=== PATIENT | female | born 1975 | race Hispanic/Latino ===

== ENCOUNTER → 2017-04-07 | Outpatient (CLI) | payer OTHER | LOC: MAMMO 15:45 | PROVIDERS: ATTEND Internal Medicine | DX: Z12.31 Encounter for screening mammogram for malignant neoplasm of breast (principal) ==

== ENCOUNTER → 2017-09-10 | Outpatient (CLI) | payer OTHER ==
--- NOTE | 2017-09-10 17:31 | Diagnostic Imaging Report ---
PROCEDURE:X-RAY LUMBAR SPINE, TWO VIEWS COMPARISON:None. INDICATIONS:PAIN IN LOWER BACK AND LEGS FINDINGS: There are 5 lumbar-type vertebral bodies. There is mild scoliosis of the upper lumbar spine convex to the right without rotational component. Transverse processes are intact. Pedicles are normally aligned and normal in morphology. There is anterolisthesis of L4 on L5 of about 3 mm. The vertebral body heights are symmetric. There is moderate disc space narrowing and endplate osteophyte lipping at L5-S1 minimal disc space narrowing at L4-5. There are no fractures, lytic or blastic lesions. Pars defects cannot be assessed in the absence of oblique images. The sacroiliac joints are unremarkable. Bowel gas pattern is unremarkable. Cholecystectomy clips are present. CONCLUSION: 1. Trace anterolisthesis of L4 on L5. 2. Moderate disc space narrowing of L5-S1 and to a lesser extent L4-5. Dictated by: Benoit Lee M.D. on 09/10/2017 at 17:36 Electronically approved by: Benoit Lee M.D. on 09/10/2017 at 17:36
--- NOTE | 2017-09-10 17:34 | Diagnostic Imaging Report ---
PROCEDURE:SACRUM X-RAY TECHNIQUE:AP and lateral images of the sacrum obtained. INDICATION:Pain in lower back and down the legs COMPARISON:Lumbar spine series obtained at the same time FINDINGS: The sacrum is intact. Sacroiliac joints are patent with mild sclerosis surrounding the right SI joint. Visualized portion of the lower lumbar spine demonstrates moderate disc space narrowing and endplate sclerosis of L5-S1. Visualized portions of the hips and pubic symphysis are normal. CONCLUSION: Degenerative changes of L5-S1. Mild sclerosis of the right SI joint. Both SI joints are patent. No evidence of fracture. Dictated by: Benoit Lee M.D. on 09/10/2017 at 17:39 Electronically approved by: Benoit Lee M.D. on 09/10/2017 at 17:39
== END ==
LOC: RAD 16:42
PROVIDERS: ATTEND Internal Medicine
DX: S33.5XXA Sprain of ligaments of lumbar spine, initial encounter (principal)
CPT/HCPCS: 72100; 72220

== ENCOUNTER → 2017-11-26 | Outpatient (CLI) | payer OTHER ==
--- NOTE | 2017-11-27 06:33 | Diagnostic Imaging Report ---
History: Low back pain. [facility] Comparison studies: None Technique: Sagittal, coronal and axial T2 , sagittal T1 and IR, axial spin density oblique. Intravenous contrast: None Findings: Number of lumbar vertebral bodies:5 Alignment: Normal lordosis.No scoliosis. Soft tissues: No T2 hyperintense inflammatory changes. Paraspinal muscles: No signal abnormalities. No atrophy. Lower thoracic cord:Normal in signal and morphology. The tip of the conus is at T12. Cauda equina: No masses. No arachnoiditis. Vertebrae: Normal in height and signal intensity. No compression fractures, infection or neoplasm. Degenerative changes: L1-L2: No abnormalities. L2-L3: No abnormalities. L3-L4: Disc degeneration with loss of T2 signal. Diffuse disc bulge and small central disc protrusion results in no significant canal stenosis or foraminal narrowing. L4-L5: Disc degeneration with loss of T2 signal. Asymmetric left disc bulge with superimposed left extraforaminal annular fissure, moderate bilateral facet hypertrophy, ligamentum flavum thickening and left 9 mm anteriorly projecting synovial cysts results in obliteration of the left subarticular recess with impingement of the descending L5 nerve root. Mild canal stenosis and mild left foraminal narrowing. Fluid at the bilateral facet joints and bilateral inferiorly projecting synovial cysts measuring up to 8 mm on the right. L5-S1: Disc degeneration with loss of T2 signal and decreased intervertebral space. Mild diffuse disc bulge and mild bilateral facet hypertrophy results in no significant canal stenosis or foraminal narrowing. Trace of fluid at the left facet joint. Additional findings: Perineural cysts measuring up to 1 cm at the right S2 nerve root partially visualized sagittal images. IMPRESSION: Obliteration of the left subarticular recess at L4-L5 secondary to asymmetric left disc bulge and anteriorly projecting synovial cyst impinging the descending left L5 nerve root. Moderate facet hypertrophy with synovitis changes at L4-L5. Disc degeneration more significant at L5-S1 without endplate edema. Other degenerative changes as described above Signed by: DR Chase Ashford M.D. on 11/27/2017 6:30 AM
== END ==
LOC: MRI 16:38
PROVIDERS: ATTEND Internal Medicine
DX: M47.817 Spondylosis without myelopathy or radiculopathy, lumbosacral region (principal); M47.16 Other spondylosis with myelopathy, lumbar region
CPT/HCPCS: 72148